=== PATIENT | male | born 1950 | race Caucasian/White ===

== ENCOUNTER 2021-04-28 11:19 | Emergency (ER) | payer MEDICARE, OTHER ==
[~2021-04-28] VITALS: Ht 182.9 cm; Wt 81.6 kg
--- NOTE | 2021-04-28 11:25 | NUR ---
PT BIBRA 889 FROM HOME C/O FOREHEAD PAIN RADIATES TO BACK OF THE HEAD AND BLURRING OF VISSION X 3 WEEKS. PT STATED HE HAD GLF AFTER EPISODE OF DIZZINESS AND HIT HIS HEAD ON THE WALL. PT A/OX4. TOELRATING R/A WELL WITH NO SOB AT 98%. CONNECTED PT TO POX AND MONITOR.
--- NOTE | 2021-04-28 11:55 | NUR ---
LAC #18G S/L; PATENT AND INTACT. BLOOD COLLECTED AND GIVEN TO LAB
[2021-04-28 12:24] LABS: BASOPHILS % (AUTO) 0.8 % (0.0-2.0); EOSINOPHILS % (AUTO) 7.4 % (0.0-6.0); HEMATOCRIT 44 % (39-51); HEMOGLOBIN 14.7 g/dL (13.5-17.5); LYMPHOCYTES % (AUTO) 56.8 % (20.0-44.0); MEAN CORPUSCULAR HGB CONC 33 g/dl (31.0-36.0); MEAN CORPUSCULAR VOLUME 100 fL (80-96); MONOCYTES # (AUTO) 0.5 K/uL (0.1-1.30); MONOCYTES % (AUTO) 9.7 % (2.0-12.0); NEUTROPHILS # (AUTO) 1.3 K/uL (1.8-8.9); NEUTROPHILS % (AUTO) 25.3 % (43.0-81.0); PLATELET COUNT (AUTO) 161 K/uL (150-450); RED BLOOD CELL COUNT(AUTO) 4.41 MIL/uL (4.5-6.0); WHITE BLOOD COUNT (AUTO) 5.3 K/uL (4.3-11.0)
--- NOTE | 2021-04-28 12:29 | NUR ---
PT TAKEN TO CT VIA [facility]
[2021-04-28 12:41] LABS: CALCIUM, SERUM 9.3 mg/dL (8.5-10.1); CARBON DIOXIDE 26 mmol/L (21-32); CHLORIDE 102 mmol/L (98-107); CREATININE 1.2 mg/dL (0.6-1.3); GLUCOSE 82 mg/dL (74-106); POTASSIUM 3.9 mmol/L (3.5-5.1); SODIUM SERUM 135 mmol/L (136-145); UREA NITROGEN, BLOOD 13 mg/dL (7-18)
--- NOTE | 2021-04-28 13:43 | NUR ---
Patient discharged to home in stable condition. Written and verbal after care instructions given. Patient verbalizes understanding of instruction. PT ambulatory with a steady gait WITH WALKER.
[2021-04-28 13:47] VITALS: BP 159/87
--- NOTE | 2021-04-28 13:48 | NUR ---
IV removed. Catheter intact and site benign. Pressure and 4x4 applied to site. No bleeding noted.Patient discharged to home in stable condition. Written and verbal after care instructions given. Patient verbalizes understanding of instruction.
== END 2021-04-28 13:48 | disposition home or self-care (01) ==
LOC: ER 12:28
DX: S09.90XA Unspecified injury of head, initial encounter (principal); I10 Essential (primary) hypertension; F17.290 Nicotine dependence, other tobacco product, uncomplicated; W10.0XXA Fall (on)(from) escalator, initial encounter; Y93.89 Activity, other specified; Y92.89 Other specified places as the place of occurrence of the external cause; Y99.8 Other external cause status
CPT/HCPCS: 36415; 70450-TC; 80048-TC; 84484-TC; 85025-TC